=== PATIENT | female | born 1940 | race Caucasian/White ===

== ENCOUNTER → 2023-10-19 13:02 | Outpatient (REF) | payer OTHER, SELFPAY ==
--- NOTE | 2023-10-19 13:07 | CA_ITS ---
Transthoracic Echocardiogram Patient (Last, First, Middle): Madeline oSrto, Gender: Female Date of : 1940 Age: 83 Procedure Date: 10/19/2023 Procedure Type: Transthoracic Echocardiogram Location: OP Height: 157.48 cm Weight: 63.5 kg BSA: 1.64 m2 Heart Rate: bpm BP: 180 / 90 mmHg Area Director Of Home Health Sales: TO Referring MD: Rocio Bills MD Symptoms: RESISTENT HTN Study Quality: Fair ECG Rhythm: Sinus Conclusions: - The left ventricular systolic function is normal. The visually estimated ejection fraction is between 65-70%. - There is mild to moderate aortic valve stenosis. - There is mild mitral annular calcification. Findings Left Ventricle Normal left ventricular cavity size. There is normal left ventricular wall thickness. The left ventricular systolic function is normal. The visually estimated ejection fraction is between 65-70%. There is no evidence of regional wall motion abnormalities. Evidence suggests grade I (mild) diastolic dysfunction. Right Ventricle Normal right ventricular cavity size and systolic function. Atria Both atria are normal in size. Aortic Valve There is a normal trileaflet aortic valve. There is moderate calcification of the aortic valve. There is mild to moderate aortic valve stenosis. Mitral Valve There is mild mitral annular calcification. There is trace mitral valve regurgitation. There is no mitral valve stenosis. Pulmonic Valve The pulmonic valve is likely normal. Tricuspid Valve There is mild tricuspid valve regurgitation. There is no evidence of pulmonary hypertension. Great Vessels The asc aorta is normal in size. Small plaque is seen in the sino tubular ridge. Venous The inferior vena cava is normal in size and collapses greater than 50% with inspiration. Pericardium/Pleural There is no evidence of pericardial effusion. Prior Study Comparison No prior study available for comparison. Measurements 2D Linear Measurements IVSd: 0.99 0.6-0.9/0.6-1.0 cm LVIDd: 3.80 3.9-5.3/4.2-5.9 cm LVIDd Index: 2.32 2.4-3.2/2.2-3.1 cm/m2 LVIDs: 2.50 2.0-3.6 cm LVPWd: 0.86 0.7-1.1 cm LA Diam: 3.00 2.7-3.8/3.0-4.0 cm LAIDs Index: 1.83 1.5-2.3 cm/m2 LV Mass: 130.81 67-162/88-224 g LV Mass Index: 79.76 43-95/49-115 g/m2 LVOT Diam: 1.90 3.0+(-)1.3 cm 2D Systolic Function EF 4C: 59.60 >55% EF 2C: 56.90 >55% EF BiP: 59.90 >55% Mitral Valve MV VTI: 0.31 MV Pk Josh: 1.47 MV Mn Josh: 0.86 MV Pk Grad: 9.00 MV Mn Grad: 4.00 MV Pk E: 0.66 MV PK A: 1.27 MV Decel Time: 178.00 E/A: 0.50 E'Lateral: 3.48 E'Medial: 3.48 E/E' Med: 19.00 E/E' Lat: 19.00 PHT: 52.00 MVA PHT: 4.23 MVA Continuity: 1.83 Decel Bent: 3.72 Aortic Valve AoV Pk Josh: 2.35 AoV Mn Josh: 1.70 AoV VTI: 0.48 AoV Pk Grad: 22.00 Aov Mn Grad: 13.00 JAGUAR Cont.VTI: 1.20 LVOT LVOT Pk Josh: 1.04 LVOT Mn Josh: 0.75 LVOT VTI: 0.20 LVOT Pk Grad: 4.00 LVOT Mn Grad: 2.00 LVOT Diam: 1.90 LVOT Area: 2.84 Diastolic Function MV Pk E: 0.66 MV Pk A: 1.27 E/A: 0.50 E'Medial: 3.48 E/E' Med: 19.00 E' Laterial: 3.48 E/E' Lat: 19.00 Right Ventricle TAPSE (mm): 17.20 TVS' Josh: 13.90 Tricuspid Valve TR Pk Josh: 2.54 TR Pk Grad: 26.00 RA Press: 3.00 RVSP: 29.00 Great Vessels Aorta Sinus of Valsalva: 3.44 2.0-3.5 cm Ao Asc: 3.20 2.1-3.4 cm Updated in Other Vendor System with Status of Final Cullen Monsalve MD electronically signed on 10/19/2023 3:40:15 PM with status of Final
== END ==
LOC: HO.CARD 13:02
PROVIDERS: PCP Family Medicine; Visit Provider Family Medicine
DX: I1A.0 Resistant hypertension (principal)
CPT/HCPCS: 93306

== ENCOUNTER → 2023-10-19 13:07 | Outpatient (BNV) | payer OTHER, SELFPAY | PROVIDERS: PCP Family Medicine; Visit Provider Internal Medicine | DX: I35.0 Nonrheumatic aortic (valve) stenosis (principal); I34.81 Nonrheumatic mitral (valve) annulus calcification; I36.1 Nonrheumatic tricuspid (valve) insufficiency | CPT/HCPCS: 93306 ==

== ENCOUNTER 2023-11-29 13:24 | Outpatient (AMB) | payer OTHER, SELFPAY ==
--- NOTE | 2023-11-29 13:26 | MHC.OFFVIS ---
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 Intake Note: New patient dx htn and dizziness per patient dizziness is gone Senior Dot Net Developer Required: No Color Artist: Color Artist Present Accompanied by: Friend Allergies No Known Allergies Allergy (Verified 11/29/23 13:34) Medication List - Last Reconciled 11/29/23 by Kenny Cloud MD amlodipine 10 mg PO DAILY aspirin 81 mg PO DAILY calcium carbonate-vitamin D3 1,000 mg-20 mcg (800 unit) tabs PO hydrochlorothiazide 25 mg PO BID metformin 1,000 mg PO BID sitagliptin phosphate (Januvia) 100 mg PO DAILY valsartan 320 mg PO DAILY HPI Comments Details: Thank you for referring Madeline in cardiology consultation today for management of hypertension and recent echocardiogram suggestive of aortic stenosis. She seeks a 2nd cardiology opinion. Said she has had longstanding history of hypertension and has been on amlodipine, hydrochlorothiazide and valsartan therapy for a long time. Few years ago she had continued elevated blood pressure was prescribed terazosin by another agent producer and she subsequently developed terrible orthostatic lightheadedness and lightheadedness all the time. She did try to contact the agent producer and was continue other medications. Eventually she decided to discontinue the medicine and since then her lightheadedness has resolved. However she notices that her blood pressure still is elevated in the 140-50 range. She denies any symptoms. She has been known to have a murmur for few years. Recent echocardiogram done here showed normal LV ejection fraction 65-70% with [id number] aortic stenosis. She denies any symptoms exertional chest pain or shortness of breath. Denies any lightheadedness, syncope. Denies any prolonged palpitation irregular heartbeat. No other heart failure symptoms. She said these blood pressures are not too concerning for her and she does not have any significant side effects. She denies any exertional chest pain [facility] Medical History Aortic stenosis Family History Father CHF (congestive heart failure) Mother Stroke Social History Patient Tobacco Use Status: Former Tobacco user Review of Systems Const Denies chills, Denies daytime sleepiness, Denies fatigue, Denies fever(s), Denies frequent falls, Denies poor appetite, Denies snoring, Denies stops breathing during sleep, Denies weakness, Denies weight gain and Denies weight loss Eyes Denies loss of vision ENT Denies dizziness and Denies hearing loss Card Denies chest pain, Denies claudication, Denies leg edema, Denies lightheadedness, Denies palpitations, Denies dyspnea, Denies dyspnea on exertion and Denies orthopnea Resp Denies cough, Denies excessive phlegm production, Denies dyspnea, Denies dyspnea on exertion, Denies snoring and Denies wheezing GI Denies abdominal pain, Denies hematochezia, Denies change in bowel habits, Denies nausea and Denies vomiting Denies urinary frequency and Denies dysuria Musc Denies arthralgias, Denies muscle weakness, Denies numbness and Denies other (frequent falls) Skin/Breast Denies nail changes and Denies rash Neuro Denies Abnormal speech present, Denies dizziness, Denies frequent falls, Denies loss of vision, Denies memory loss, Denies numbness and Denies weakness Psych Denies depression and Denies memory loss Endo Denies fatigue and Denies palpitations Ray/Lymph Reports easy bruising and Reports other (anemia) Aller/Immun Denies wheezing Physical Exam Vital Signs: Last Vital Signs Pulse 93 11/29/23 13:30 BP 146/82 H 11/29/23 13:30 BMI result Body Mass Index 26.2 Const General: cooperative, comfortable, no acute distress, well developed, alert, awake, Physically active and well groomed Nutritional Appearance: average body habitus and well nourished Orientation/consciousness: patient oriented x3 Limitations: no limitations HEENT Head: Yes normocephalic and Yes atraumatic Neck Neck: Yes trachea midline, Yes supple and Yes no JVD Resp Effort & Inspection: normal respiratory effort Auscultation: clear to auscultation bilaterally Cardio Jugular venous distension: no JVD Palpation: normal PMI Rate: regular rate Rhythm: regular rhythm Heart sounds: S1 normal heart sound present, S2 normal heart sound present, no click, no gallops and Murmur heart sound present systolic early, decrescendo and crescendo GI Auscultation: normal bowel sounds Skin General skin exam: no rashes or lesions noted Neuro General: patient oriented x3 and no focal motor deficits Speech: No Abnormal speech present Extrem General: Yes no clubbing, cyanosis or edema Psych Appearance: grossly normal Office Procedures EKG Details: EKG shows normal sinus rhythm normal EKG at 93 beats per minute 26148-[id number], Complete Assessment & Plan Assessment & Plan (1) Aortic stenosis: Code(s): I35.0 - Nonrheumatic aortic (valve) stenosis Category: Medical Plan: Aortic stenosis which is [id number] by echocardiogram. Causing no symptoms at current point in time. No interventions required from surgical or catheter perspective. This was discussed with her. Continue monitoring annually by echocardiogram. Cardinal symptoms of aortic stenosis were discussed. Advise low-dose aspirin therapy and aggressive risk factor modification. Target goal LDL at least less than 100 mg/dL. (2) HTN (hypertension): Code(s): I10 - Essential (primary) hypertension Category: Medical Plan: Patient has longstanding hypertension with possibly some labile component given her age and atherosclerotic vascular disease. She currently has no symptoms of angina. At this point time we discussed about management of hypertension difficulty with labile blood pressure. Alpha blockers only a not great therapy as this may potentially at orthostatic hypotension. She is already on maximum dose of amlodipine, hydrochlorothiazide valsartan. I would suggest to start her on labetalol therapy and started low-dose. She is advised to call me with any potential side effects. Low-salt diet was discussed. Stress mitigation strategies were discussed. Advised to monitor blood pressure at home. If possible target goal blood pressure less than 130 systolic. Will follow up in the clinic in 1 year's time, sooner p.r.n.. Thank you for allowing me to partake in the care Orders: Orders Lipid Panel 2 Months I35.0 - Nonrheumatic aortic (valve) stenosis CA echo transthoracic complete 11 Months I35.0 - Nonrheumatic aortic (valve) stenosis Medications: New labetalol 50 mg (1/2 x 100 mg) PO BID 60 tabs 1RF atorvastatin (Lipitor) 20 mg PO DAILY 30 tabs 5RF I35.0 - Nonrheumatic aortic (valve) stenosis Coding Level of Care Code New Pt Level 4 (70226) Diagnoses Aortic stenosis I35.0 HTN (hypertension) I10 CPT Codes EKG - CPT: 56559-Ukhuzqkygkfeodrum, Complete ([id number])
[2023-11-29 13:30] VITALS: BP 146/82; PULSE 93; BMI 26.2
== END 2023-11-29 14:09 | disposition home or self-care (01) ==
PROVIDERS: PCP Family Medicine; Visit Provider Internal Medicine Cardiovascular Disease
DX: I35.0 Nonrheumatic aortic (valve) stenosis (principal); I10 Essential (primary) hypertension
CPT/HCPCS: 93010; 99204

== ENCOUNTER → 2023-11-29 13:24 | Outpatient (BNVA) | payer OTHER, SELFPAY | PROVIDERS: PCP Family Medicine; Visit Provider Internal Medicine Cardiovascular Disease | DX: I35.0 Nonrheumatic aortic (valve) stenosis (principal); I10 Essential (primary) hypertension | CPT/HCPCS: 93005; 99202 ==

== ENCOUNTER → 2024-02-04 09:50 | Outpatient (BNVA) | payer OTHER, SELFPAY | PROVIDERS: PCP Family Medicine; Visit Provider Nurse Practitioner Family ==

== ENCOUNTER → 2024-10-30 10:39 | Outpatient (REF) | payer BC, SELFPAY ==
--- NOTE | 2024-10-30 10:43 | CA_ITS ---
Transthoracic Echocardiogram Patient (Last, First, Middle): Madeline Sorto, Gender: Female Date of : 1940 Age: 84 Procedure Date: 10/30/2024 Procedure Type: Transthoracic Echocardiogram Location: OP Height: 157.48 cm Weight: 56.7 kg BSA: 1.57 m2 Heart Rate: bpm BP: 125 / 76 mmHg Magnetic Grinder Operator: PEDRO Referring MD: Kenny Cloud MD Symptoms: I35.0 - Nonrheumatic aortic (valve) stenosis Study Quality: Fair ECG Rhythm: Sinus Conclusions: - The left ventricular systolic function is normal. The calculated ejection fraction is 66% by biplane method. - There is mild to moderate aortic valve stenosis. - There is moderate mitral annular calcification. Findings Left Ventricle Normal left ventricular cavity size. There is normal left ventricular wall thickness. The left ventricular systolic function is normal. The calculated ejection fraction is 66% by biplane method. There is no evidence of regional wall motion abnormalities. Evidence suggests grade I (mild) diastolic dysfunction. Right Ventricle Normal right ventricular cavity size and systolic function. Atria Both atria are normal in size. Aortic Valve There is mild calcification of the aortic valve. There is mild to moderate aortic valve stenosis. There is no aortic valve regurgitation. Dimensionless index 0.41. Mitral Valve There is moderate mitral annular calcification. There is trace mitral valve regurgitation. There is no mitral valve stenosis. Pulmonic Valve There is trace pulmonic valve regurgitation. Tricuspid Valve There is mild tricuspid valve regurgitation. There is no evidence of pulmonary hypertension. Great Vessels The asc aorta is normal in size. Moderate plaque is seen in the sino tubular ridge. Venous The inferior vena cava is normal in size and collapses greater than 50% with inspiration. Pericardium/Pleural There is no evidence of pericardial effusion. Prior Study Comparison No significant change compared to prior study dated: 10/19/2023. Measurements 2D Linear Measurements IVSd: 0.91 0.6-0.9/0.6-1.0 cm LVIDd: 4.56 3.9-5.3/4.2-5.9 cm LVIDd Index: 2.90 2.4-3.2/2.2-3.1 cm/m2 LVIDs: 2.99 2.0-3.6 cm LVPWd: 0.74 0.7-1.1 cm LA Diam: 3.00 2.7-3.8/3.0-4.0 cm LAIDs Index: 1.91 1.5-2.3 cm/m2 LV Mass: 149.97 67-162/88-224 g LV Mass Index: 95.52 43-95/49-115 g/m2 LVOT Diam: 1.90 3.0+(-)1.3 cm 2D Systolic Function EF 4C: 65.40 >55% EF 2C: 66.90 >55% EF BiP: 66.40 >55% Mitral Valve MV Pk E: 0.83 MV PK A: 1.20 MV Decel Time: 318.00 E/A: 0.70 E'Lateral: 3.70 E'Medial: 4.46 E/E' Med: 18.50 E/E' Lat: 22.30 PHT: 93.00 MVA PHT: 2.37 Decel Crowley: 2.60 Aortic Valve AoV Pk Josh: 2.48 AoV Mn Josh: 1.79 AoV VTI: 0.58 AoV Pk Grad: 25.00 Aov Mn Grad: 14.00 JAGUAR Cont.VTI: 1.19 LVOT LVOT Pk Josh: 1.02 LVOT Mn Josh: 0.71 LVOT VTI: 0.24 LVOT Pk Grad: 4.00 LVOT Mn Grad: 2.00 LVOT Diam: 1.90 LVOT Area: 2.84 Diastolic Function MV Pk E: 0.83 MV Pk A: 1.20 E/A: 0.70 E'Medial: 4.46 E/E' Med: 18.50 E' Laterial: 3.70 E/E' Lat: 22.30 Right Ventricle TAPSE (mm): 24.70 TVS' Josh: 13.80 Tricuspid Valve TR Pk Josh: 2.53 TR Pk Grad: 26.00 RA Press: 3.00 RVSP: 29.00 Great Vessels Aorta Sinus of Valsalva: 3.45 2.0-3.[address] Ridge: 2.11 1.7-3.4 cm Ao Asc: 3.10 2.1-3.4 cm Updated in Other Vendor System with Status of Final Cullen Monsavle MD electronically signed on 10/30/2024 12:42:13 PM with status of Final
--- OUTSIDE RECORDS SUMMARY | 2024-10-30 11:19 | XMS_ITS | Clinical Summary ---
Author Organization [employer] Address [address] [place] [address] [address] [place] [address] Care Team Providers Care Skiving Machine Operator Name Role Phone Unavailable Primary Care Provider Unavailabl e Immunizations Immunization Administration Dates Next Due Influenza Quadrivalent Adjuvanted 05/27/2022 Influenza, High Dose Seasonal, Preservative Free 03/30/2014 Influenza, IIV3, injectable 04/24/2015 Moderna Covid-19 Vaccine 12+ 09/27/2020,08/30/19 21 Pneumococcal Polysaccharide PPSV23 03/30/2014 Social History Tobacco Use Types Packs/Day Years Used Date Smoking Tobacco: Never Assessed Comments Unknown Sex and Gender Information Value Date Recorded Sex Assigned at Not on file Legal Sex Female 8:37 PM EDT Gender Identity Not on file Sexual Orientation Not on file Last Filed Vital Signs Vital Sign Reading Time Taken Comments Blood Pressure 176/78 01/22/2021 11:00 AM EDT Pulse 64 06/21/2019 2:30 PM EST Temperature - - Respiratory Rate - - Oxygen Saturation - - Inhaled Oxygen Concentration - - Weight 66.2 kg (146 lb) 06/21/2019 2:30 PM EST Height 156.2 cm (5' 1.5 ) 06/21/2019 2:30 PM EST Body Mass Index 27.14 06/21/2019 2:30 PM EST Plan of Treatment Health Maintenance Due Date Last Done Comments Depression Screening 1940 Alcohol/Substance Use Screening 1952 Tobacco Screening 1952 DTaP/Tdap/Td Vaccines (1 - Tdap) 08/27/1958 Zoster Vaccines (1 of 2) 08/27/1989 RSV Patients and Patients Aged 60 years or older (1 - 1-dose 75+ series) 08/27/2014 Pneumococcal Vaccine: 50+ Years (2 of 2 - PCV) 03/30/2015 03/30/2014 COVID-19 Vaccine (4 - 2023-2 5 season) 2024 06/04/2021, 09/27/2020, 08/29/2020 Influenza Vaccine (#1) 2024 2, 04/24/2015, 03/30/2014 HIB Vaccines Aged Out No longer eligi ble based on patient's age to complete this topic HPV Vaccines Aged Out No longer eligi ble based on patient's age to complete this topic Hepatitis A Vaccines Aged Out No long er eligible based on patient's age to complete this topic Hepatitis B Vaccines Aged Out No long er eligible based on patient's age to complete this topic IPV Vaccines Aged Out No longer eligi ble based on patient's age to complete this topic Meningococcal B Vaccine Aged Out No l onger eligible based on patient's age to complete this topic Meningococcal Vaccine Aged Out No mg nick eligible based on patient's age to complete this topic RSV under 20 months Aged Out No longe r eligible based on patient's age to complete this topic Rotavirus Vaccines Aged Out No longer eligible based on patient's age to complete this topic
--- OUTSIDE RECORDS SUMMARY | 2024-10-30 11:19 | XMS_ITS | Clinical Summary ---
Author Organization [facility] Facility Address [address] [place] [address] Care Team Providers Care Presser First Name Role Phone Meghan Gay [facility] Primary Care Provider Medications amLODIPine (NORVASC) 10 MG tablet Take 1 tablet by mouth 1 (one) time each day Active hydroCHLOROthiaz rachel (HYDRODIURIL) 25 MG tablet Take 1 tablet by mouth 2 (two) times a day Active metFORMIN (GLUCOPHAGE) 1000 MG tablet Take 1 tablet by mouth 2 (two) times a day Active metoprolol succinate XL (TOPROL-XL) 100 MG 24 hr tablet Take 1 tablet by mouth 1 (one) time each day Active SITagliptin (Januvia) 100 MG tablet Take 1 tablet by mouth 1 (one) time each day 06/01/2018 Active valsartan (DIOVAN) 320 MG tablet Take 1 tablet by mouth 1 (one) time each day Active Active Problems Problem Noted Date Diagnosed Date 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 Family History Medical History Relation Comments Diabetes Father Heart disease Father also grandparent s Diabetes Mother Heart disease Mother also grandparent s Hypertension Mother Kidney disease Mother Stroke Mother Diabetes Sibling 1 x4 Hypertension Sibling 2 x4 Relation Status Comments Father Mother Sibling 1 Sibling 2 Social History Tobacco Use Types Packs/Day Years Used Date Smoking Tobacco: Never Comments:Smoking History Inf o:Every day Alcohol Use Standard Drinks/Week Comments No 0 (1 standard drink = 0.6 oz pure alcohol) Alcoholic Drinks/day: Occasional social drink Comments Unknown Sex and Gender Information Value Date Recorded Sex Assigned at Not on file Legal Sex Female 4:33 PM EST Gender Identity Not on file Sexual Orientation Not on file Last Filed Vital Signs Vital Sign Reading Time Taken Comments Blood Pressure 124/74 01/19/2019 12:00 PM EDT Pulse - - Temperature - - Respiratory Rate - - Oxygen Saturation - - Inhaled Oxygen Concentration - - Weight 64 kg (141 lb) 01/19/2019 12:00 PM EDT Height 157.5 cm (5' 2 ) 01/19/2019 12:00 PM EDT Body Mass Index 25.79 01/19/2019 12:00 PM EDT Plan of Treatment Health Maintenance Due Date Last Done Comments Pneumococcal Vaccine: 50+ Ye ars (2 of 2 - PCV) 04/25/2015 04/25/2014 Diabetes: Hemoglobin A1C 08/06/2020 Diabetes: Ophthalmology Exam 08/06/2020 Diabetes: Pedal Pulse Checked 08/06/2020 Diabetes: Sensory Foot Exam 08/06/2020 Diabetes: Visual Foot Exam 08/06/2020 Influenza Vaccine (Season Ended) 2025 05/02/20 15 Pneumococcal Vaccine: Peds ( 0 to 5 Years) and At-Risk Patients (6 to 49 Years) Discontinued 04/25/2014 Hepatitis B Vaccine Aged Out No longe r eligible based on patient's age to complete this topic Insurance ALISSA ROMAN [id number] Care Teams Presser First Relationship Specialty Start Date End Date Meghan Gay FNP PCP - General 04/18/19
--- OUTSIDE RECORDS SUMMARY | 2024-10-30 11:19 | XMS_ITS | Encounter Summary ---
Author Organization [employer] Address [address] [place] [address] [address] [address] Care Team Providers Care Cargo Supervisor Name Role Phone Unavailable Primary Care Provider Unavailabl e Encounter Details Date Type Department Care Team (Latest Contact Info) Description 05/31/2019 Abstract [facility] Dental, Provider, DDS Social History Tobacco Use Types Packs/Day Years Used Date Smoking Tobacco: Never Assessed Comments Unknown Sex and Gender Information Value Date Recorded Sex Assigned at Not on file Legal Sex Female 8:37 PM EDT Gender Identity Not on file Sexual Orientation Not on file documented as of this encounter Plan of Treatment Not on file documented as of this encounter Visit Diagnoses Not on filedocumented in this encounter
--- OUTSIDE RECORDS SUMMARY | 2024-10-30 11:19 | XMS_ITS | Encounter Summary ---
Author Organization [employer] Address [address] [place] [address] [address] [address] Care Team Providers Care Retail Cosmetics Sales Counter Manager Name Role Phone Unavailable Primary Care Provider Unavailabl e Encounter Details Date Type Department Care Team (Latest Contact Info) Description 11/23/2018 Abstract [facility] Dental, Provider, DDS Social [...]
== END ==
LOC: HO.CARD 10:39
PROVIDERS: PCP Family Medicine; Visit Provider Internal Medicine Cardiovascular Disease
DX: I35.0 Nonrheumatic aortic (valve) stenosis (principal)
CPT/HCPCS: 93306

== ENCOUNTER → 2024-10-30 10:43 | Outpatient (BNV) | payer BC, SELFPAY | PROVIDERS: PCP Family Medicine; Visit Provider Internal Medicine | DX: I35.0 Nonrheumatic aortic (valve) stenosis (principal); I35.8 Other nonrheumatic aortic valve disorders; I34.81 Nonrheumatic mitral (valve) annulus calcification; I36.1 Nonrheumatic tricuspid (valve) insufficiency | CPT/HCPCS: 93306 ==